=== PATIENT | female | born 1990 | race Caucasian/White ===

== ENCOUNTER 2022-12-07 08:11 | Emergency (ER) | payer MEDICAID ==
[~2022-12-07] VITALS: Ht 162.6 cm; Wt 117.3 kg
[2022-12-07 08:25] VITALS: BP 127/67; PULSE 65; RESP 20; TEMP 98; O2SAT 99
[2022-12-07] MEDS ORDERED: KETOROLAC 15 MG/ML VIAL IM ONE (08:55)
[2022-12-07] MEDS ORDERED: IBUP-2213 PO (09:24)
[2022-12-07 10:00] VITALS: BP 127/67; PULSE 65; RESP 20; TEMP 98; O2SAT 99
== END 2022-12-07 10:00 | disposition home or self-care (01) ==
LOC: MED 08:11
DX: S69.81XA Other specified injuries of right wrist, hand and finger(s), initial encounter (principal); Z79.899 Other long term (current) drug therapy; X58.XXXA Exposure to other specified factors, initial encounter; Y93.89 Activity, other specified; Y92.89 Other specified places as the place of occurrence of the external cause; Y99.8 Other external cause status
CPT/HCPCS: 73110; 96372; 99283; J1885

== ENCOUNTER 2023-09-14 10:41 | Emergency (ER) | payer MEDICAID ==
[~2023-09-14] VITALS: Ht 162.6 cm; Wt 113.4 kg
[~2023-09-14 10:41] MED LIST: IBUP-2213 PO
[2023-09-14 10:53] VITALS: BP 134/81; PULSE 81; RESP 18; TEMP 97.9; O2SAT 99
[2023-09-14] MEDS ORDERED: IBUP-2213 PO (12:58)
[2023-09-14] MEDS: IBUPROFEN 600 MG TAB PO ONE (13:09)
[2023-09-14 13:10] VITALS: BP 130/80; PULSE 78; RESP 18; TEMP 98.1; O2SAT 99
== END 2023-09-14 13:11 | disposition home or self-care (01) ==
LOC: MED 10:41
DX: S93.402A Sprain of unspecified ligament of left ankle, initial encounter (principal); S93.602A Unspecified sprain of left foot, initial encounter; R03.0 Elevated blood-pressure reading, without diagnosis of hypertension; Z79.1 Long term (current) use of non-steroidal anti-inflammatories (NSAID); X58.XXXA Exposure to other specified factors, initial encounter; Y92.89 Other specified places as the place of occurrence of the external cause; Y93.89 Activity, other specified; Y99.8 Other external cause status
CPT/HCPCS: 73610; 73630; 99284